=== PATIENT | female | born 1965 | race Hispanic/Latino ===

== ENCOUNTER 2017-08-22 00:17 | Emergency (ER) | payer SELFPAY ==
[2017-08-22 00:58] LABS: #Eosinphils 0.3 thou/uL (0.0-0.7); #Monocytes 0.7 thou/uL (0.11-0.59); #Neutrophils 9.8 thou/uL (1.40-6.50); %Basophils 0.4 % (0.0-1.0); %Eosinophils 2.3 % (0.0-10.0); %Lymphocytes 15.5 % (21.0-51.0); %Monocytes 5.2 % (0.0-10.0); Hematocrit 28.9 % (36.0-47.0); Mean Platelet Volume 9.7 fL (7.4-10.4); Red Blood Cell (RBC) Count 4.35 mill/uL (4.20-5.40); White Blood Cell (WBC) Count 12.8 thou/uL (4.8-10.8)
[2017-08-22 01:18] LABS: ALT (SGPT) 9 U/L (8-55); AST (SGOT) 10 U/L (5-34); Alkaline Phosphatase 61 U/L (40-150); Anion Gap 16 mmol/L (10-20); BUN (Urea Nitrogen) 17 mg/dL (7.0-18.7); Bilirubin, Total 0.3 mg/dL (0.2-1.2); Calc. Creatinine Clearance 0 mL/min (70-130); Calcium 9.2 mg/dL (7.8-10.44); Carbon Dioxide 22 mmol/L (22-29); Chloride 98 mmol/L (98-107); Estimated GFR-MDRD 71; Globulin 3.4 g/dL (2.4-3.5); Protein, Total 7.6 g/dL (6.0-8.3)
[2017-08-22 02:11] LABS: Troponin I Less than 0.010 ng/mL (< 0.028)
--- NOTE | 2017-08-22 10:34 | RAD ---
CHEST 2 VIEWS: HISTORY: Cough and fever. FINDINGS: Heart size and mediastinum are within normal limits. The lungs are clear of infiltrates. No signifi cant bony findings. IMPRESSION: No active intrathoracic disease. POS: [facility]
--- NOTE | 2017-08-28 15:36 | EKG ---
Test Reason : LIGHTHEADED Blood Pressure : / mmHG Vent. Rate : 092 BPM Atrial Rate : 092 BPM P-R Int : 144 ms QRS Dur : 086 ms QT Int : 374 ms P-R-T Axes : 027 -07 006 degrees QTc Int : 462 ms Normal sinus rhythm Inferior infarct , age undetermined Abnormal ECG Confirmed by ROMEO FIELDS D.O. ([id number]), newspaper editor DANILO STOREY ([id number]) on 08/28/2017 3:35:32 PM Referred By: Confirmed By:ROMEO FIELDS D.O.
== END 2017-08-22 03:05 | disposition home or self-care (01) ==
LOC: ERS 00:17
DX: R42 Dizziness and giddiness (principal); E11.9 Type 2 diabetes mellitus without complications; I10 Essential (primary) hypertension; Z86.73 Personal history of transient ischemic attack (TIA), and cerebral infarction without residual deficits
CPT/HCPCS: 36415; 36416; 71020; 80053; 82553; 84484; 85025; 93005; 96360

== ENCOUNTER 2017-08-22 21:14 | Emergency (ER) | payer SELFPAY ==
[2017-08-22 22:18] LABS: Bilirubin Negative (Negative); Blood, Urine Negative (Negative); Glucose, Urine (Dipstick) 250 mg/dL (Negative); Ketone, Urine Negative (Negative); Nitrite Negative (Negative); Protein, Urine (Dipstick) Negative (Neg-Trace); Urobilinogen 0.2 mg/dL (0.2-1.0)
[2017-08-22 22:28] LABS: #Basophils 0.1 thou/uL (0.0-0.2); #Eosinphils 0.2 thou/uL (0.0-0.7); #Monocytes 0.6 thou/uL (0.11-0.59); #Neutrophils 9.7 thou/uL (1.40-6.50); %Basophils 0.5 % (0.0-1.0); %Eosinophils 1.2 % (0.0-10.0); %Lymphocytes 15.6 % (21.0-51.0); %Monocytes 4.9 % (0.0-10.0); Hematocrit 28.6 % (36.0-47.0); Mean Platelet Volume 9.7 fL (7.4-10.4); Red Blood Cell (RBC) Count 4.34 mill/uL (4.20-5.40); White Blood Cell (WBC) Count 12.5 thou/uL (4.8-10.8)
[2017-08-22 22:45] LABS: ALT (SGPT) 11 U/L (8-55); AST (SGOT) 11 U/L (5-34); Alkaline Phosphatase 64 U/L (40-150); Anion Gap 17 mmol/L (10-20); BUN (Urea Nitrogen) 11 mg/dL (7.0-18.7); Bilirubin, Total 0.2 mg/dL (0.2-1.2); Calc. Creatinine Clearance 0 mL/min (70-130); Calcium 9.5 mg/dL (7.8-10.44); Carbon Dioxide 18 mmol/L (22-29); Chloride 98 mmol/L (98-107); Estimated GFR-MDRD 78; Globulin 3.6 g/dL (2.4-3.5); Protein, Total 8.1 g/dL (6.0-8.3)
[2017-08-22] MEDS ORDERED: Ketorolac Tromethamine 30 MG/ML VIAL ONE (22:50)
[2017-08-23] MEDS ORDERED: Ondansetron HCl/PF 4 MG/2 ML Vial ONE (00:15)
== END 2017-08-23 00:25 | disposition home or self-care (01) ==
LOC: ERS 21:14
DX: R30.0 Dysuria (principal); E11.9 Type 2 diabetes mellitus without complications; I10 Essential (primary) hypertension; Z86.73 Personal history of transient ischemic attack (TIA), and cerebral infarction without residual deficits; Z79.899 Other long term (current) drug therapy
CPT/HCPCS: 36415; 81003; 81025; 87086; 96374; 96375; J1885; J2405

== ENCOUNTER 2019-03-30 08:00 | Observation (INO) | payer SELFPAY ==
[2019-03-30] MEDS ORDERED: Ketorolac Tromethamine 30 MG/ML VIAL ONE (08:31)
[2019-03-30] MEDS ORDERED: Acetaminophen 500 MG TAB ONE (08:31)
[2019-03-30 09:14] LABS: #Basophils 0.1 thou/uL (0.0-0.2); #Eosinphils 0.2 thou/uL (0.0-0.7); #Lymphocytes 1.9 thou/uL (1.20-3.40); #Monocytes 0.6 thou/uL (0.11-0.59); #Neutrophils 4.3 thou/uL (1.40-6.50); %Basophils 1.6 % (0.0-1.0); %Eosinophils 3.2 % (0.0-10.0); %Lymphocytes 26.8 % (21.0-51.0); %Monocytes 8.1 % (0.0-10.0); %Neutrophils 60.5 % (42.0-75.0); Hemoglobin 7.6 g/dL (12.0-16.0); Mean Corpuscular HGB CONC 27.8 g/dL (32.0-36.0); Mean Corpuscular Hemoglobin 16.3 pg (27.0-31.0); Mean Corpuscular Volume 58.6 fL (78.0-98.0); Mean Platelet Volume 6.5 fL (7.4-10.4); Platelet Count 432 thou/uL (130-400); RBC Distribution Width 19.8 % (11.5-14.5); Red Blood Cell (RBC) Count 4.65 mill/uL (4.20-5.40)
[2019-03-30 09:19] LABS: ALT (SGPT) 14 U/L (8-55); AST (SGOT) 17 U/L (5-34); Albumin 4.8 g/dL (3.5-5.0); Alkaline Phosphatase 68 U/L (40-150); Anion Gap 12 mmol/L (10-20); BUN (Urea Nitrogen) 10 mg/dL (9.8-20.1); Bilirubin, Total 0.5 mg/dL (0.2-1.2); Calc. Creatinine Clearance 0 mL/min (70-130); Calcium 10.1 mg/dL (7.8-10.44); Carbon Dioxide 26 mmol/L (22-29); Chloride 99 mmol/L (98-107); Estimated GFR-MDRD 81; Globulin 3.5 g/dL (2.4-3.5); Glucose 171 mg/dL (70-105); Potassium 3.8 mmol/L (3.5-5.1); Protein, Total 8.3 g/dL (6.0-8.3); Sodium 133 mmol/L (136-145)
[2019-03-30 09:39] LABS: Bilirubin Negative (Negative); Blood, Urine Negative (Negative); Clarity Clear (Clear); Glucose, Urine (Dipstick) Normal (Negative); Leukocyte Negative Leu/uL (Negative); Nitrite Negative (Negative); Protein, Urine (Dipstick) Negative (Neg-Trace); Urobilinogen Normal mg/dL (Less than 2)
[2019-03-30 09:44] LABS: Reflex for Review?? YES
[2019-03-30] MEDS ORDERED: Pantoprazole 40 MG VIAL ONE (12:34)
[2019-03-30 17:54] VITALS: BMI 33.7
[2019-03-30] MEDS ORDERED: GoLYTELY 4,000 ml Bottle PO SCH (18:00)
[2019-03-30] MEDS ORDERED: Sodium Chloride 0.9% (PF) 10 ML VIAL FS PRN (18:42)
[2019-03-30] MEDS ORDERED: Insulin Regular 300 UNITS/3 ML VIAL SC PRN (18:43)
[2019-03-30] MEDS ORDERED: Dextrose 5% in Water 1,000 ML IV PRN (18:43)
[2019-03-30] MEDS ORDERED: Dextrose 50% Abboject 50 ML SYRINGE IVP PRN (18:43)
--- NOTE | 2019-03-30 23:09 | CON ---
DATE OF CONSULTATION: 03/30/2019 REQUESTING PHYSICIAN: Damián Munoz M.D. REASON FOR CONSULTATION: GI bleeding and anemia. HISTORY OF PRESENT ILLNESS: Bell Torres is a 53-year-old woman with a prior history of CVA back in 2015 with some residual left-sided weakness, also diabetes and recurrent urinary tract infections. She is being admitted to the hospital today with iron deficiency anemia and a recent episode of rectal bleeding, though she presented with symptoms of suprapubic pain and dysuria as well as fever at home. Back in 2015, she was placed on Plavix after her stroke. She was rehospitalized in November 2015 with urinary tract symptoms and was also found to have significant anemia. She was seen by my colleague, Dr. Mesa at that time. She had no overt bleeding. FOBT was repeatedly negative and in the context of heavy menses, this was not thought to represent any GI issue. She had celiac serologies checked which were negative at that time. She did not undergo any endoscopic investigation. Dr. Mesa had recommended iron supplementation, which it appears the patient has not been on. She has continued on Plavix. Over the past 3 years, the patient denies any chronic gastrointestinal symptoms. Last week, she had a day with multiple loose bowel movements, which represented a really acute diarrhea. This only lasted for a day, but near the end of the day, she was having some bright red blood in her stool, which is something she had never had before. Over the past week since then, she has not had any recurrence of blood in the stool or any melena. However, for the past couple of day, she has been having some suprapubic burning discomfort, which she relates more to urination than anything else. She started her menses a couple of days ago, and these are usually heavy. Then, she started having some subjective fevers and chills and states that her temperature was up to 102 at home, and this prompted her presentation. Here, she has been afebrile and hemodynamically stable. Labs are significant for microcytic anemia with hemoglobin 7.6, MCV down to 58.6. This appears to be chronic with previous hemoglobin checked here, in the 8 to 9 range. FOBT was performed, and this was positive. The patient is being admitted for observation and further workup. She has no other complaints. PAST MEDICAL HISTORY: CVA in 2016, diabetes, hyperlipidemia, recurrent urinary tract infections, and tubal ligation, ALLERGIES: SULFA. OUTPATIENT MEDICATIONS: 1. Zocor. 2. Gemfibrozil. 3. Januvia. 4. Metformin. 5. Lisinopril. 6. Plavix 75 mg daily. 7. Nexium 20 mg daily. SOCIAL HISTORY: Alcohol use is rare. No smoking or drug use. FAMILY HISTORY: Her father had surgery for a large colon polyp, but this was evidently nonmalignant. REVIEW OF SYSTEMS: Full review of systems including constitutional, head, eyes, ears, nose, throat, GI, , cardiovascular, respiratory, musculoskeletal, neurologic systems is negative except as noted in the HPI. PHYSICAL EXAMINATION: VITAL SIGNS: Temperature 98.2, pulse 88, blood pressure 123/67, 100% oxygen saturation on room air. GENERAL: A 53-year-old woman, lying in bed comfortably, in no distress. SKIN: She is pale. No jaundice. No rashes were palpable. EYES: No scleral icterus. Extraocular movements intact. ENT: Mucous membranes moist. No oral lesions. LYMPH: No submandibular or supraclavicular lymphadenopathy. THYROID: Nontender to palpation. HEART: Regular rate and rhythm. LUNGS: Clear to auscultation bilaterally. ABDOMEN: Bowel sounds are present. Soft, nontender to deep palpation in the upper abdomen. There is some mild tenderness to palpation of the lower abdomen in the midline, but no guarding or rebound tenderness. EXTREMITIES: No peripheral edema. VESSELS: Radial pulses 2+ bilaterally. NEURO: Cranial nerves 2-12 intact bilaterally. LABORATORY STUDIES: Hemoglobin 7.6, MCV 58.6, WBC 7, platelets 432. Sodium 133, potassium 3.8, BUN 10, creatinine 0.75. Troponin negative. Urinalysis negative. LFTs all normal with total bilirubin 0.5, alkaline phosphatase 68, AST 17, ALT 14, albumin 4.8. Reviewing prior labs from August 2017 had shown hemoglobin 9.0. From October 2015, ferritin was low at 7.3. ASSESSMENT/PLAN: 1. Rectal bleeding, single episode one week ago. 2. Iron deficiency anemia, chronic, in the context of ongoing Plavix use and no oral iron supplementation. 3. Positive fecal occult blood test. 4. Suprapubic pain. I had a long discussion with the patient. She did have a single episode of rectal bleeding last week, but this has not recurred, and there has been no further overt gastrointestinal bleeding. Her menses are quite heavy, and this was thought to probably represent the etiology of her iron deficiency anemia during evaluation three years ago. However, now with the recent episode of rectal bleeding, the positive FOBT, the ongoing suprapubic pain, I note normal urinalysis, further GI investigation is required. I recommend that we proceed with both EGD and colonoscopy to evaluate for occult GI bleeding lesion. She is agreeable to this. We will administer bowel preparation this evening and plan for EGD and colonoscopy tomorrow. If endoscopic investigation is unremarkable, then I would recommend gynecologic consultation. The patient will also need to be on iron supplementation on hospital discharge. Job ID: [id number]
--- NOTE | 2019-03-31 01:19 | HP ---
CHIEF COMPLAINT: Abdominal pain, fever, chills, and dysuria. HISTORY OF PRESENT ILLNESS: Ms. Bell Torres is a 53-year-old female with past medical history of diabetes, hypertension, status post CVA, started having some feeling of fever, dizziness, feeling weak since yesterday. She felt like she might have fever, some pain in the lower abdomen. She thought she may have UTI, so she came to the hospital. In the ER, the patient was evaluated and found to be severely anemic, but she did not have any UTI. She had heme-positive stool with history of some possible GI bleeding. The patient received Protonix and then admitted for further evaluation and management. A GI consult also requested. PAST MEDICAL HISTORY: 1. Hypertension. 2. Diabetes mellitus. 3. Hyperlipidemia. 4. 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 5. History of anemia. PAST SURGICAL HISTORY: Status post tubal ligation. CURRENT MEDICATIONS: The patient is on; 1. Plavix 75 mg daily. 2. Metformin 1000 mg; 750 in the morning, 250 in the evening. 3. Glipizide 10 mg b.i.d. 4. Simvastatin 20 mg daily. 5. Lisinopril and hydrochlorothiazide 1 tablet daily. 6. Lopid 600 daily. 7. Nexium 20 mg daily. 8. Januvia 50 mg daily. ALLERGIES: SULFA. FAMILY HISTORY: Nothing contributory. SOCIAL HISTORY: The patient lives with family. No history of smoking. No history of alcohol intake. REVIEW OF SYSTEMS: Unremarkable except for the weakness, dizziness, fevers, chills. PHYSICAL EXAMINATION: GENERAL: The patient is alert, awake, and oriented x3. VITAL SIGNS: Temperature 98, pulse 79, respirations 20, blood pressure 130/70. HEENT: Head is normocephalic and atraumatic. Pupils are equal and reactive. Nasopharynx is pale and dry. Hard and soft palate, no lesions seen. SKIN: Skin turgor decreased. NECK: Supple. No JVD. LUNGS: Bilateral air entry with no rales, no rhonchi. HEART: S1, S2 regular. ABDOMEN: Soft, mildly tender in the lower abdomen. No guarding. No rigidity. Bowel sounds present. RECTAL: Done in the ER revealed heme-positive stool. CENTRAL NERVOUS SYSTEM: No new deficits. LABORATORY DATA: CBC shows WBC 7, hemoglobin 7.6, hematocrit 27, platelets 432. Metabolic panel; sodium 133, potassium 3.8, chloride 99, CO2 of 26, blood urea nitrogen 10, creatinine 0.7, glucose 171. Urinalysis negative. ASSESSMENT: 1. Severe microcytic anemia, symptomatic. 2. Heme-positive stool, rule out gastrointestinal bleeding. 3. Hypertension. 4. Diabetes mellitus. 5. Status post CVA. PLAN: 1. Vital signs q.4 hours. 2. Activity, as tolerated. 3. Allergies, sulfa. 4. Hep-Lock. 5. Diet, n.p.o. 6. Accu-Cheks q.6 hours, sliding scale mild with regular insulin. 7. Protonix 40 daily. 8. GI consult. Job ID: [id number]
[2019-03-31 06:15] LABS: #Basophils 0.1 thou/uL (0.0-0.2); #Eosinphils 0.3 thou/uL (0.0-0.7); #Lymphocytes 1.5 thou/uL (1.20-3.40); #Monocytes 0.5 thou/uL (0.11-0.59); #Neutrophils 2.5 thou/uL (1.40-6.50); %Basophils 1.8 % (0.0-1.0); %Eosinophils 6.4 % (0.0-10.0); %Lymphocytes 30.7 % (21.0-51.0); %Monocytes 9.6 % (0.0-10.0); %Neutrophils 51.6 % (42.0-75.0); Hemoglobin 6.5 g/dL (12.0-16.0); Mean Corpuscular HGB CONC 28.8 g/dL (32.0-36.0); Mean Corpuscular Volume 59.2 fL (78.0-98.0); Mean Platelet Volume 5.7 fL (7.4-10.4); Platelet Count 273 thou/uL (130-400); RBC Distribution Width 19.7 % (11.5-14.5); Red Blood Cell (RBC) Count 3.83 mill/uL (4.20-5.40); White Blood Cell (WBC) Count 4.8 thou/uL (4.8-10.8)
[2019-03-31 06:33] LABS: Anion Gap 11 mmol/L (10-20); BUN (Urea Nitrogen) 7 mg/dL (9.8-20.1); Calc. Creatinine Clearance 151 mL/min (70-130); Calcium 9.1 mg/dL (7.8-10.44); Carbon Dioxide 27 mmol/L (22-29); Chloride 101 mmol/L (98-107); Estimated GFR-MDRD Greater than 90; Glucose 189 mg/dL (70-105); Potassium 3.8 mmol/L (3.5-5.1); Sodium 135 mmol/L (136-145)
[2019-03-31] MEDS: Pantoprazole 40 MG VIAL IVP SCH (08:13)
[2019-03-31] MEDS ORDERED: Midazolam HCl 2 mg/2 ml Vial ONE (12:06)
[2019-03-31] MEDS ORDERED: Fentanyl 100 MCG/2 ML VIAL ONE (12:06)
--- NOTE | 2019-03-31 13:46 | OP ---
DATE OF PROCEDURE: 03/31/2019 ASSISTANCE SURGEON: None. PROCEDURES PERFORMED: 1. Esophagogastroduodenoscopy, diagnostic. 2. Colonoscopy with snare polypectomy. INDICATIONS: 1. Rectal bleeding, recent single episode. 2. Chronic iron-deficiency anemia. 3. Heme-positive stool. 4. Lower abdominal pain. MEDICATIONS: See Anesthesia record. FINDINGS: After discussion of the risks, benefits, and alternatives of the procedure, informed consent was obtained and witnessed. Pre-endoscopic cardiopulmonary examination was satisfactory. Time-out was performed before sedation was achieved. Sedation was achieved with Anesthesia assistance in the endoscopy unit. A Pentax adult upper endoscope was placed into the oropharynx and passed through the cricopharyngeus under direct visualization. The esophageal mucosa appeared normal throughout with a normal-appearing Z-line at 37 cm from the incisors. The endoscope was advanced into the stomach. Forward and retroflexed views of the entire gastric mucosa were obtained. The gastric mucosa appeared normal throughout. The endoscope was advanced through the pylorus and into the first and second portions of the duodenum, which also appeared normal. The upper endoscope was completely withdrawn and the patient was repositioned. Digital rectal exam was performed. There was some blood at the perineal area, which is coming from the vaginal opening. The patient is on her menstrual period at this time. No bleeding from the rectum. There were a few small external hemorrhoidal skin tags. Digital rectal exam was performed, which was otherwise unremarkable. The Pentax adult colonoscope was inserted into the anus and passed forward to the cecum in the usual fashion. The cecal base was identified by the appendiceal orifice as well as the ileocecal valve. The terminal ileum was intubated and the ileal mucosa was normal. The colonoscope was slowly withdrawn in a gradual and circumferential manner with careful examination of the entire colonic mucosa. The quality of the prep was good. The colonic mucosa appeared completely normal throughout. There was no evidence of any old blood, active bleeding, or bleeding lesions throughout the entirety of the colon. There were a few scattered diverticula throughout the colon. In the sigmoid colon, there was a small polyp measuring 2 mm in diameter. This was completely removed with cold snare and retrieved for pathology. Retroflexion in the rectum demonstrated internal hemorrhoids, which were nonbleeding. The colonoscope was completely withdrawn and the patient allowed to recover. The patient tolerated the procedure well. There were no immediate postprocedure complications. IMPRESSION: 1. Normal EGD. 2. Scattered colonic diverticulosis. 3. A 2 mm sigmoid colon polyp, completely removed with cold snare and retrieved for pathology. 4. Internal hemorrhoids, nonbleeding. RECOMMENDATIONS: 1. Iron supplementation. 2. Regular diet. 3. I would recommend gynecologic consultation or referral be made for the patient's menorrhagia. The patient's chronic anemia is likely secondary to heavy menstrual losses in the context of Plavix use, and chronic iron deficiency resulting from this. 4. Follow up pathology on the colon polyp. If the polyp is hyperplastic, repeat colonoscopy in 10 years. If the polyp is an adenoma, repeat colonoscopy in 5 years. GI will sign off. Please call back anytime with questions or concerns. Job ID: [id number]
[2019-03-31] MEDS ORDERED: Lidocaine 1% PF 5 ML VIAL ONE (14:56)
[2019-03-31] MEDS ORDERED: PROPOFOL 200 MG/20 ML VIAL ONE (14:56)
[2019-03-31] MEDS: Gemfibrozil 600 MG TAB PO SCH (16:18)
--- NOTE | 2019-03-31 16:48 | ULT ---
US Pelvic Transvag W Doppler HISTORY: Pelvic pain COMPARISON: None. FINDINGS: Real-time imaging of the pelvis was obtained transabdominally as well as within the endovag inal probe. This shows a uterus measuring 5.1 x 6.1 x 9.4 cm. Uterus has a heterogeneous appearance, is difficult to define discrete fibroids. The endometrium is in the 1 cm range. The right ovary shows a 2.4 cm cyst, the left ovary has a cyst measuring approximately 2.3 cm. Doppler evaluation with spectral analysis normal flow shown to both adnexa. A nabothian cyst is incidentally noted. IMPRESSION: 1. Diffusely heterogeneous echotexture of the uterus, no focal fibroids are identified although small fibroids could be present the other possibility is this represents adenomyosis. 2. Bilateral ovarian cysts.
[2019-03-31] MEDS ORDERED: Atorvastatin Calcium 10 MG TAB PO SCH (21:00)
[2019-03-31] MEDS: metFORMIN 500 MG TAB PO SCH (21:55)
--- NOTE | 2019-04-01 02:17 | CON ---
DATE OF CONSULTATION: 03/31/2019 CHIEF COMPLAINT: Heavy periods. HISTORY OF PRESENT ILLNESS: The patient is a 53-year-old female with a past medical history of hypertension, diabetes, hyperlipidemia, status post CVA, presenting to the hospital with complaints of fever, dizziness, and feeling weak. She was admitted to the hospital for severe microcytic anemia, symptomatic, and heme-positive stools. The patient had a colonoscopy done earlier today that was essentially normal. An ELECTRICAL MAINTENANCE MAN was consulted for menorrhagia. The patient reports that for the last 6 months, she has been having heavier periods than normal, lasting sometimes 5 to 9 days. She also admits that she is not having in the same time of every month like she used to home and later reported that her periods at times are not heavy, but lasted for few days. Prior to 6 months ago, she does report that she is having regular monthly periods lasting 3 to 5 days and has been having that for years. The patient reports that she started having this a couple days ago and is now having light bleeding. The patient denies any family history of labor trainer pathology or cancers. She reports that she has had a Pap smear within the last year and is normal, and has always had normal Pap smears for the last 20+ years. PAST MEDICAL HISTORY: 1. Hypertension. 2. Diabetes. 3. Hyperlipidemia. 4. History of stroke. 5. Anemia. PAST SURGICAL HISTORY: She has had tubal ligation. CURRENT MEDICATIONS: 1. Plavix 75 mg. 2. Metformin 1000 mg. 3. Glipizide 10 mg b.i.d. 4. Simvastatin 20 mg daily. 5. Lisinopril hydrochlorothiazide daily. 6. Lopid 600 mg daily. 7. Nexium 20 mg daily. 8. Januvia 50 mg daily. ALLERGIES: SULFA DRUGS. SOCIAL HISTORY: Denies drug, alcohol, or tobacco use. REVIEW OF SYSTEMS: Reports abdominal cramping, hunger. Denies weakness or dizziness at the time of evaluation. The patient was counseled for an endometrial biopsy outside. Transvaginal ultrasound essentially showed a slightly enlarged uterus with mass consistent with a transmural fibroid. She has had endometrial thickness about 1.2 cm. The patient also had 2+ cm size cyst on either ovary. The patient was counseled to the benefits and risk of an endometrial biopsy given her age and overall irregular bleeding including the risk of bleeding, infection, perforation of the uterus, cramping with the benefit of evaluation for possible premalignancy. The patient expressed understanding and desires to proceed. The patient provided written informed consent. The patient was placed in dorsal lithotomy position. In the [facility] exam room, a speculum was then placed vaginally. Cervix was prepped with Betadine x2. A single-tooth tenaculum was applied to the anterior lip of the cervix as the cervix was somewhat posterior and pointing very inferiorly. An endometrial pipette was then gently passed through the cervix into the endometrial cavity with a sound of 9 cm. With about 10 seconds of passing the pipette through the contents of the cavity, the pipette was removed and the contents were put into formalin bottle with what appeared to be good return. At this point, the tenaculum was removed. The tenaculum sites appeared to be hemostatic and the procedure was completed. Speculum was removed and patient was taken back to her room. PHYSICAL EXAMINATION: VITAL SIGNS: Blood pressure 129/78, temperature 97.7, respiratory rate of 16, pulse of 93. GENERAL: She appears to be in no acute distress. She is alert and oriented, cooperative, and pleasant to interact with. HEAD: Normocephalic, atraumatic. ABDOMEN: Soft. Vulva is without masses, lesions, or erythema. Vagina is moist. Cervix is closed. EXTREMITIES: Nontender. LABORATORY DATA: Pre-transfusion 6.5 hemoglobin, hematocrit 22.6, platelet count of 273, MCV is 59.2. ASSESSMENT AND PLAN: The patient is a 53-year-old female with abnormal uterine bleeding. She may have perimenopausal bleeding given her age. An endometrial biopsy has been performed to evaluate for possible pathology. I would recommend outpatient followup with [facility] [place] for evaluation for possible endometrial ablation given the level of anemia patient has received. Looking at the entire picture and the length of time patient has demonstrated anemia in the system with anemia in the 7s and 6s as early as November of 2015. This anemia may be more associated with chronic disease or chronic long-term iron deficiency and less related to her menorrhagia. However, given her more recent what sounds like excessive bleeding, certainly this has been a contributing factor to her requirement for blood transfusion. The patient may be entering soon into menopause solving this problem herself. Over this conversation, she can have more [place] with an outpatient ELECTRICAL MAINTENANCE MAN evaluation. I guess the next question is, is there any kind of medical intervention necessary to help better manage her periods in the short term. The patient does have a history of stroke and so any estrogen containing products are not indicated at this time. However, the patient may benefit from medroxyprogesterone 5 mg daily to be given on a continuous basis. Also helpful if not contraindicated would be the use of NSAIDs during onset of her menses as this has been shown to reduce overall blood loss. We will be reviewing the pathology results with Melissa by phone when they become available. Job ID: [id number]
[2019-04-01 05:25] LABS: #Basophils 0.1 thou/uL (0.0-0.2); #Eosinphils 0.5 thou/uL (0.0-0.7); #Lymphocytes 2.7 thou/uL (1.20-3.40); #Monocytes 0.6 thou/uL (0.11-0.59); #Neutrophils 3.4 thou/uL (1.40-6.50); %Basophils 1.4 % (0.0-1.0); %Lymphocytes 36.8 % (21.0-51.0); %Neutrophils 46.8 % (42.0-75.0); Hemoglobin 8.5 g/dL (12.0-16.0); Mean Corpuscular HGB CONC 30.6 g/dL (32.0-36.0); Mean Corpuscular Hemoglobin 19.6 pg (27.0-31.0); Mean Platelet Volume 5.9 fL (7.4-10.4); Platelet Count 290 thou/uL (130-400); Red Blood Cell (RBC) Count 4.34 mill/uL (4.20-5.40); White Blood Cell (WBC) Count 7.3 thou/uL (4.8-10.8)
[2019-04-01 05:48] LABS: Anion Gap 12 mmol/L (10-20); BUN (Urea Nitrogen) 14 mg/dL (9.8-20.1); Calc. Creatinine Clearance 133 mL/min (70-130); Calcium 9.1 mg/dL (7.8-10.44); Carbon Dioxide 24 mmol/L (22-29); Chloride 103 mmol/L (98-107); Estimated GFR-MDRD 84; Glucose 179 mg/dL (70-105); Potassium 3.7 mmol/L (3.5-5.1); Sodium 135 mmol/L (136-145)
[2019-04-01] MEDS ORDERED: glipiZIDE 10 MG TAB PO SCH (07:30)
[2019-04-01] MEDS ORDERED: Lisinopril/Hydrochlorothiazide 10 mg/12.5 mg Tablet PO SCH (09:00)
[2019-04-01] MEDS ORDERED: Clopidogrel Bisulfate 75 MG TAB PO SCH (09:00)
[2019-04-01] MEDS ORDERED: Alogliptin 25 MG TAB PO SCH (09:00)
[2019-04-01] MEDS: Gemfibrozil 600 MG TAB PO SCH (09:09)
[2019-04-01] MEDS: metFORMIN 500 MG TAB PO SCH (09:09)
[2019-04-01] MEDS: Pantoprazole 40 MG VIAL IVP SCH (09:10)
[2019-04-01 12:00] VITALS: BP 158/78; TEMP 97.8
--- NOTE | 2019-04-05 03:50 | DIS ---
DATE OF ADMISSION: 03/30/2019 DATE OF DISCHARGE: 04/01/2019 ADMITTING DIAGNOSES: 1. Severe microcytic anemia, symptomatic. 2. Heme-positive stool, rule out GI bleeding. 3. Hypertension. 4. Diabetes mellitus. 5. Status post cerebrovascular accident. FINAL DIAGNOSES: 1. Severe microcytic anemia, symptomatic, status post transfusion. 2. Heme-positive stool, but no evidence of acute GI bleeding. 3. History of menorrhagia. 4. Hypertension. 5. Diabetes mellitus. 6. Status post cerebrovascular accident. BRIEF SUMMARY OF HOSPITAL COURSE: Ms. Torres is a 53-year-old female admitted because of weakness and dizziness. The patient is found to be severely anemic with hemoglobin of 7.6. The patient was transfused, started on Protonix and GI was consulted and patient was seen by Dr. Olson, who suggested EGD and colonoscopy, the patient underwent procedures. EGD was normal. Colonoscopy showed scattered colonic diverticulosis and sigmoid colon polyp which was removed. She also had internal hemorrhoid. The patient also had history of menorrhagia. In view of that, a DIGITAL SALES MANAGER consult was done. The patient was seen by Dr. Marroquin and he suggested biopsy of the endometrium which was done and the result is pending. The patient had a pelvic ultrasound done which did not reveal any uterine fibroids. Her hemoglobin improved after transfusion. Initial hemoglobin was 6.5, improved to 8.6 after transfusion. The patient has been feeling well, so she is being discharged. At the time of discharge, she was stable, her vital signs stable. Lungs clear to auscultation. Abdomen is soft, nontender, bowel sounds present. DISCHARGE MEDICATIONS: 1. Plavix 75 mg daily. 2. Januvia 100 mg daily. 3. Simvastatin 20 mg daily. 4. Lisinopril/hydrochlorothiazide 10/12.5 daily. 5. Nexium 20 mg daily. 6. Gemfibrozil 600 b.i.d. 7. Metformin 1000 mg b.i.d. 8. Glipizide 10 mg b.i.d. 9. Ferrous sulfate 325 mg daily. FOLLOWUP: The patient will come for followup in 2 weeks and also will follow up with DIGITAL SALES MANAGER regarding biopsy. Job ID: [id number] [facility]
--- NOTE | 2019-04-08 07:09 | PDOC.EVN ---
Event Note - Event Note Event Note: 04/08 EMB chart check (photonics engineering technician OBGYN): EMB benign.
== END 2019-04-01 12:49 | disposition home or self-care (01) ==
LOC: ERS 08:00 → ERHOLD 12:21 → T4-A 17:40
PROVIDERS: ADMIT Internal Medicine; ATTEND Internal Medicine
PROC: 0DJ08ZZ Inspection of Upper Intestinal Tract, Via Natural or Artificial Opening Endoscopic (ICD-10-PCS; principal; 2019-03-31)
PROC: 0DBN8ZX Excision of Sigmoid Colon, Via Natural or Artificial Opening Endoscopic, Diagnostic (ICD-10-PCS; 2019-03-31)
PROC: 0UDB7ZX Extraction of Endometrium, Via Natural or Artificial Opening, Diagnostic (ICD-10-PCS; 2019-03-31)
DX: D50.9 Iron deficiency anemia, unspecified (principal); K62.5 Hemorrhage of anus and rectum; D12.5 Benign neoplasm of sigmoid colon; K57.30 Diverticulosis of large intestine without perforation or abscess without bleeding; K64.4 Residual hemorrhoidal skin tags; K64.8 Other hemorrhoids; N92.0 Excessive and frequent menstruation with regular cycle; N83.202 Unspecified ovarian cyst, left side; N83.201 Unspecified ovarian cyst, right side; N88.8 Other specified noninflammatory disorders of cervix uteri; E11.9 Type 2 diabetes mellitus without complications; I10 Essential (primary) hypertension; E78.5 Hyperlipidemia, unspecified; I69.354 Hemiplegia and hemiparesis following cerebral infarction affecting left non-dominant side; Z79.02 Long term (current) use of antithrombotics/antiplatelets; Z79.84 Long term (current) use of oral hypoglycemic drugs; Z79.899 Other long term (current) drug therapy; Z88.2 Allergy status to sulfonamides; Z98.51 Tubal ligation status
CPT/HCPCS: 36415; 36416; 36430; 51701; 76856; 80048; 80053; 82274; 85025; 85060; 86850; 86900; 86901; 87086; 88305; 96361; 96372; 96374; 96375; A4353; C9113; G0378; J1885; J2001; J2250; J2704; J3010; P9016

== ENCOUNTER 2020-12-31 12:03 | Emergency (ER) | payer SELFPAY ==
[2020-12-31 14:54] LABS: #Basophils 0.1 thou/uL (0.0-0.2); #Eosinphils 0.3 thou/uL (0.0-0.7); #Lymphocytes 2.4 thou/uL (1.20-3.40); #Monocytes 0.5 thou/uL (0.11-0.59); #Neutrophils 5.9 thou/uL (1.40-6.50); %Basophils 1.2 % (0.0-1.0); %Eosinophils 2.9 % (0.0-10.0); %Lymphocytes 25.8 % (21.0-51.0); %Monocytes 5.6 % (0.0-10.0); %Neutrophils 64.5 % (42.0-75.0); Mean Corpuscular HGB CONC 31.2 g/dL (32.0-36.0); Mean Corpuscular Hemoglobin 18.8 pg (27.0-31.0); Mean Corpuscular Volume 60.3 fL (78.0-98.0); Mean Platelet Volume 5.9 fL (7.4-10.4); Platelet Count 361 thou/uL (130-400); RBC Distribution Width 18.3 % (11.5-14.5); Red Blood Cell (RBC) Count 4.77 mill/uL (4.20-5.40); White Blood Cell (WBC) Count 9.2 thou/uL (4.8-10.8)
[2020-12-31 15:20] LABS: ALT (SGPT) 10 U/L (8-55); AST (SGOT) 10 U/L (5-34); Albumin 4.9 g/dL (3.5-5.0); Alkaline Phosphatase 74 U/L (40-110); Anion Gap 18 mmol/L (10-20); BUN (Urea Nitrogen) 10 mg/dL (9.8-20.1); Bilirubin, Total 0.2 mg/dL (0.2-1.2); Calc. Creatinine Clearance 0 mL/min (70-130); Calcium 10.2 mg/dL (7.8-10.44); Carbon Dioxide 20 mmol/L (22-29); Chloride 100 mmol/L (98-107); Globulin 3.5 g/dL (2.4-3.5); Glucose 179 mg/dL (70-105); Protein, Total 8.4 g/dL (6.0-8.3); Sodium 134 mmol/L (136-145)
[2020-12-31 15:23] LABS: Anisocytosis SLIGHT = 6-15 cells (100X) (0-5/hpf); Hypochromia SLIGHT = 6-15 cells (100X) (0-5/hpf); MDiff Complete? YES; Microcytosis MODERATE=15-30 cells (100X) (0-5/hpf); Platelet Morphology Comment Appears Adequate; Polychromasia MODERATE = 3-4 cells (100X) (0-2/hpf); Reflex for Review?? NO; Stomatocytes SLIGHT = 2-5 cells (100X) (0-1/hpf); Target Cells SLIGHT = 2-5 cells (100X) (0-1/hpf); Tear Drops SLIGHT = 2-5 cells (100X) (0-1/hpf)
[2020-12-31 16:16] LABS: Bacteria/HPF None Seen HPF (None Seen); Bilirubin Negative (Negative); Blood, Urine 2+ (Negative); Clarity Clear (Clear); Glucose, Urine (Dipstick) 50 mg/dL (Negative); Ketone, Urine Negative (Negative); Leukocyte Negative Leu/uL (Negative); Nitrite Negative (Negative); Protein, Urine (Dipstick) Negative (Neg-Trace); RBC/HPF 0-3 HPF (0-3); Specific Gravity, Urine 1.008 (1.002-1.036); Squamous Epithelial 0-3 HPF (0-3); Urobilinogen Normal mg/dL (Less than 2); WBC/HPF 0-3 HPF (0-3)
[2020-12-31 16:17] LABS: Pregnancy Test - Urine (BHCG) Negative (Negative); Pregu Control Background? CLEAR/WHITE (CLR/WHITE); Pregu Control Bar Appear? YES (CONTROL BAR); Specific Gravity 1.008 (1.002-1.036)
== END 2020-12-31 16:42 | disposition home or self-care (01) ==
LOC: ERS 12:03
DX: D50.9 Iron deficiency anemia, unspecified (principal); E11.9 Type 2 diabetes mellitus without complications; I10 Essential (primary) hypertension; E78.00 Pure hypercholesterolemia, unspecified; Z86.73 Personal history of transient ischemic attack (TIA), and cerebral infarction without residual deficits
CPT/HCPCS: 36415; 71045; 80053; 81003; 81015; 81025; 84484; 85025; 86850; 86900; 86901; 93005

== ENCOUNTER 2022-02-02 15:06 | Emergency (ER) | payer SELFPAY ==
[2022-02-02 15:36] LABS: #Basophils 0.1 thou/uL (0.0-0.2); #Eosinphils 0.4 thou/uL (0.0-0.7); #Lymphocytes 2.3 thou/uL (1.20-3.40); #Monocytes 0.6 thou/uL (0.11-0.59); #Neutrophils 6.3 thou/uL (1.40-6.50); %Basophils 0.8 % (0.0-1.0); %Eosinophils 4.7 % (0.0-10.0); %Lymphocytes 23.6 % (21.0-51.0); %Monocytes 5.8 % (0.0-10.0); %Neutrophils 65.2 % (42.0-75.0); Hemoglobin 9.2 g/dL (12.0-16.0); Mean Corpuscular HGB CONC 30.9 g/dL (32.0-36.0); Mean Corpuscular Hemoglobin 19.4 pg (27.0-31.0); Mean Corpuscular Volume 62.6 fL (78.0-98.0); Mean Platelet Volume 5.5 fL (7.4-10.4); Platelet Count 299 thou/uL (130-400); RBC Distribution Width 18.1 % (11.5-14.5); Red Blood Cell (RBC) Count 4.73 mill/uL (4.20-5.40); White Blood Cell (WBC) Count 9.6 thou/uL (4.8-10.8)
[2022-02-02 15:50] LABS: BHCG - Serum Negative (NEGATIVE); Pregs Control Background? CLEAR/WHITE (CLR/WHITE); Pregs Control Bar Appear? YES (CONTROL BAR)
[2022-02-02 15:59] LABS: ALT (SGPT) 8 U/L (8-55); AST (SGOT) 8 U/L (5-34); Albumin 4.6 g/dL (3.5-5.0); Alkaline Phosphatase 63 U/L (40-110); Anion Gap 15 mmol/L (10-20); BUN (Urea Nitrogen) 11 mg/dL (9.8-20.1); Bilirubin, Total 0.3 mg/dL (0.2-1.2); Calc. Creatinine Clearance 0 mL/min (70-130); Calcium 10.3 mg/dL (7.8-10.44); Carbon Dioxide 23 mmol/L (22-29); Chloride 97 mmol/L (98-107); Globulin 3.3 g/dL (2.4-3.5); Glucose 110 mg/dL (70-105); Lipase 24 U/L (8-78); Potassium 3.3 mmol/L (3.5-5.1); Protein, Total 7.9 g/dL (6.0-8.3); Sodium 132 mmol/L (136-145)
[2022-02-02 16:00] LABS: Anisocytosis SLIGHT = 6-15 cells (100X) (0-5/hpf); Hypochromia MODERATE=16-30 cells (100X) (0-5/hpf); Large Platelets SLIGHT; MDiff Complete? YES; Microcytosis SLIGHT = 6-15 cells (100X) (0-5/hpf); Ovalocytes SLIGHT = 2-5 cells (100X) (0-1/hpf); Platelet Morphology Comment Appears Adequate; Polychromasia MODERATE = 3-4 cells (100X) (0-2/hpf); Reflex for Review?? NO; Tear Drops SLIGHT = 2-5 cells (100X) (0-1/hpf)
[2022-02-02] MEDS ORDERED: Ondansetron PF 4 MG/2 ML Vial ONE (18:33)
[2022-02-02 19:36] LABS: Bilirubin Negative (Negative); Blood, Urine Negative (Negative); Clarity Clear (Clear); Glucose, Urine (Dipstick) Normal (Negative); Ketone, Urine Negative (Negative); Leukocyte Negative Leu/uL (Negative); Nitrite Negative (Negative); Protein, Urine (Dipstick) Negative (Neg-Trace); Specific Gravity, Urine 1.012 (1.002-1.036); Urobilinogen Normal mg/dL (Less than 2); pH, Urine 5.5 (5.0-9.0)
== END 2022-02-02 20:02 | disposition home or self-care (01) ==
LOC: ERS 15:06
DX: R11.2 Nausea with vomiting, unspecified (principal); R19.7 Diarrhea, unspecified; E11.9 Type 2 diabetes mellitus without complications; I10 Essential (primary) hypertension; E78.00 Pure hypercholesterolemia, unspecified; D64.9 Anemia, unspecified; Z79.84 Long term (current) use of oral hypoglycemic drugs; Z79.899 Other long term (current) drug therapy; Z86.73 Personal history of transient ischemic attack (TIA), and cerebral infarction without residual deficits
CPT/HCPCS: 36415; 36416; 80053; 81003; 83690; 84703; 85025; 96361; 96374; J2405

== ENCOUNTER 2024-03-08 10:23 | Emergency (ER) | payer SELFPAY ==
[~2024-03-08 10:23] MED LIST: Iopamidol-370 76% 500 ML MDV (1 ML CHARGE) ONE
[2024-03-08] MEDS ORDERED: Ketorolac Tromethamine 30 MG (1 mL) VIAL ONE (10:55)
[2024-03-08] MEDS ORDERED: Ondansetron PF 4 MG/2 ML Vial ONE (10:55)
[2024-03-08 11:17] LABS: ALT (SGPT) 13 U/L (8-55); AST (SGOT) 14 U/L (5-34); Albumin 4.5 g/dL (3.5-5.0); Alkaline Phosphatase 58 U/L (40-110); Anion Gap 18 mmol/L (10-20); BUN (Urea Nitrogen) 11 mg/dL (9.8-20.1); Bilirubin, Total 0.3 mg/dL (0.2-1.2); Calc. Creatinine Clearance 0 mL/min (70-130); Calcium 9.8 mg/dL (7.8-10.44); Carbon Dioxide 21 mmol/L (22-29); Chloride 100 mmol/L (98-107); Estimated GFR 100; Globulin 3.7 g/dL (2.4-3.5); Glucose 175 mg/dL (70-105); Lipase 40 U/L (8-78); Potassium 3.6 mmol/L (3.5-5.1); Protein, Total 8.2 g/dL (6.0-8.3); Sodium 135 mmol/L (136-145)
[2024-03-08 11:59] LABS: Platelet Adequacy Comment Platelets Normal; RBC Morphology Within Normal Limits
[2024-03-08 12:00] LABS: #Basophils 0.07 10x3/uL (0.0-0.2); %Basophils 1.3 % (0.0-1.0); %Eosinophils 4.2 % (0.0-10.0); %Lymphocytes 28.3 % (21.0-51.0); %Monocytes 5.8 % (0.0-10.0); %Neutrophils 60.2 % (42.0-75.0); Hematocrit 30.7 % (36.0-47.0); Hemoglobin 9.3 g/dL (12.0-16.0); Mean Corpuscular HGB CONC 30.3 g/dL (32.0-36.0); Mean Corpuscular Hemoglobin 20.4 pg (27.0-31.0); Mean Corpuscular Volume 67.3 fL (78.0-98.0); Mean Platelet Volume 9.6 fL (7.4-10.4); Platelet Count 303 10x3/uL (130-400); RBC Distribution Width 17.1 % (11.5-14.5); Red Blood Cell (RBC) Count 4.56 mill/uL (4.20-5.40)
[2024-03-08 12:39] LABS: Bacteria/HPF None Seen HPF (None Seen); Bilirubin Negative (Negative); Blood, Urine Negative (Negative); CAUTI Indications for Culture Pelvic or flank pain; Clarity Clear (Clear); Glucose, Urine (Dipstick) Normal (Negative); Ketone, Urine Negative (Negative); Leukocyte Negative Leu/uL (Negative); Nitrite Negative (Negative); Protein, Urine (Dipstick) Negative (Neg-Trace); RBC/HPF 0-3 HPF (0-3); Specific Gravity, Urine 1.007 (1.002-1.036); Squamous Epithelial 0-3 HPF (0-3); Urobilinogen Normal mg/dL (Less than 2); WBC/HPF 0-3 HPF (0-3); pH, Urine 6.5 (5.0-9.0)
[2024-03-08 12:42] LABS: Urine Culture Reflex No No
[2024-03-08] MEDS ORDERED: Morphine 4 MG/ML VIAL ONE (14:09)
== END 2024-03-08 14:17 | disposition home or self-care (01) ==
LOC: ERS 10:23
DX: K57.32 Diverticulitis of large intestine without perforation or abscess without bleeding (principal); E11.9 Type 2 diabetes mellitus without complications; I10 Essential (primary) hypertension; Z79.899 Other long term (current) drug therapy; Z79.84 Long term (current) use of oral hypoglycemic drugs
CPT/HCPCS: 71045; 74177; 76705; 80053; 81001; 83690; 85025; 93005; 96374; 96375; J1885; J2270; J2405

== ENCOUNTER 2024-04-04 16:42 | Emergency (ER) | payer MEDICARE, SELFPAY ==
[2024-04-04 17:38] LABS: #Basophils 0.12 10x3/uL (0.0-0.2); %Basophils 1.5 % (0.0-1.0); %Eosinophils 6.3 % (0.0-10.0); %Lymphocytes 40.9 % (21.0-51.0); %Monocytes 4.9 % (0.0-10.0); %Neutrophils 46.3 % (42.0-75.0); Hematocrit 32.4 % (36.0-47.0); Hemoglobin 9.7 g/dL (12.0-16.0); Mean Corpuscular HGB CONC 29.9 g/dL (32.0-36.0); Mean Corpuscular Hemoglobin 20.9 pg (27.0-31.0); Mean Corpuscular Volume 69.7 fL (78.0-98.0); Mean Platelet Volume 10.3 fL (7.4-10.4); Platelet Count 648 10x3/uL (130-400); Red Blood Cell (RBC) Count 4.65 mill/uL (4.20-5.40)
[2024-04-04 17:52] LABS: ALT (SGPT) 19 U/L (8-55); AST (SGOT) 24 U/L (5-34); Albumin 4.3 g/dL (3.5-5.0); Alkaline Phosphatase 58 U/L (40-110); Anion Gap 20 mmol/L (10-20); BUN (Urea Nitrogen) 13 mg/dL (9.8-20.1); Bilirubin, Total 0.1 mg/dL (0.2-1.2); Calc. Creatinine Clearance 0 mL/min (70-130); Calcium 10.2 mg/dL (7.8-10.44); Carbon Dioxide 21 mmol/L (22-29); Chloride 96 mmol/L (98-107); Estimated GFR 92; Globulin 3.8 g/dL (2.4-3.5); Glucose 165 mg/dL (70-105); Lipase 28 U/L (8-78); Potassium 4.3 mmol/L (3.5-5.1); Protein, Total 8.1 g/dL (6.0-8.3); Sodium 133 mmol/L (136-145)
[2024-04-04 18:06] LABS: Burr Cells SLIGHT = 2-5 cells HPF (0-1); Microcytosis SLIGHT = 6-15 cells HPF (0-5); Platelet Adequacy Comment Platelets Increased
[2024-04-04] MEDS ORDERED: Morphine 4 MG/ML VIAL ONE ×2 (18:19→22:00)
[2024-04-04] MEDS ORDERED: Ondansetron PF 4 MG/2 ML Vial ONE (18:19)
[2024-04-04 18:57] LABS: Bacteria/HPF None Seen HPF (None Seen); Bilirubin Negative (Negative); Blood, Urine Trace (Negative); CAUTI Indications for Culture Dysuria,urgency,freq; Clarity Clear (Clear); Glucose, Urine (Dipstick) Normal (Negative); Ketone, Urine Negative (Negative); Leukocyte 75 Leu/uL (Negative); Nitrite Negative (Negative); Protein, Urine (Dipstick) Negative (Neg-Trace); RBC/HPF 0-3 HPF (0-3); Specific Gravity, Urine 1.008 (1.002-1.036); Urobilinogen Normal mg/dL (Less than 2)
[2024-04-04 18:58] LABS: Urine Culture Reflex No No
== END 2024-04-04 23:43 | disposition home or self-care (01) ==
LOC: ERS 16:42
DX: R10.11 Right upper quadrant pain (principal); R10.811 Right upper quadrant abdominal tenderness; E11.9 Type 2 diabetes mellitus without complications; I10 Essential (primary) hypertension
CPT/HCPCS: 74177; 76705; 80053; 81001; 83690; 85025; J2270; J2405; Q9967; 36415; 96374; 96375; 96376

== ENCOUNTER 2024-04-07 14:06 | Emergency (ER) | payer MEDICARE ==
[2024-04-07] MEDS ORDERED: Sucralfate 1 GM/10 ML UDCUP ONE (15:44)
[2024-04-07] MEDS ORDERED: HYDROcodone/Acetaminophen 5/325 mg Tablet ONE (15:44)
[2024-04-07] MEDS ORDERED: Famotidine 20 MG TAB ONE (15:45)
[2024-04-07 15:47] LABS: %Basophils 1.3 % (0.0-1.0); %Eosinophils 5.5 % (0.0-10.0); %Lymphocytes 37.3 % (21.0-51.0); %Monocytes 5.4 % (0.0-10.0); %Neutrophils 50.4 % (42.0-75.0); Hematocrit 33.4 % (36.0-47.0); Hemoglobin 10.1 g/dL (12.0-16.0); Mean Corpuscular HGB CONC 30.2 g/dL (32.0-36.0); Mean Corpuscular Hemoglobin 21.1 pg (27.0-31.0); Mean Corpuscular Volume 69.7 fL (78.0-98.0); Mean Platelet Volume 10.1 fL (7.4-10.4); Platelet Count 544 10x3/uL (130-400); RBC Distribution Width 18.3 % (11.5-14.5); Red Blood Cell (RBC) Count 4.79 mill/uL (4.20-5.40)
[2024-04-07 16:11] LABS: ALT (SGPT) 18 U/L (8-55); AST (SGOT) 17 U/L (5-34); Albumin 4.6 g/dL (3.5-5.0); Alkaline Phosphatase 57 U/L (40-110); Anion Gap 15 mmol/L (10-20); BUN (Urea Nitrogen) 10 mg/dL (9.8-20.1); Bilirubin, Total 0.2 mg/dL (0.2-1.2); Calc. Creatinine Clearance 0 mL/min (70-130); Calcium 10.4 mg/dL (7.8-10.44); Carbon Dioxide 23 mmol/L (22-29); Chloride 100 mmol/L (98-107); Estimated GFR 102; Globulin 3.7 g/dL (2.4-3.5); Glucose 124 mg/dL (70-105); Lipase 37 U/L (8-78); Potassium 3.8 mmol/L (3.5-5.1); Protein, Total 8.3 g/dL (6.0-8.3); Sodium 134 mmol/L (136-145)
[2024-04-07 16:18] LABS: Bacteria/HPF None Seen HPF (None Seen); Bilirubin Negative (Negative); Blood, Urine Negative (Negative); Clarity Clear (Clear); Glucose, Urine (Dipstick) Normal (Negative); Ketone, Urine Negative (Negative); Leukocyte 25 Leu/uL (Negative); Nitrite Negative (Negative); Protein, Urine (Dipstick) Negative (Neg-Trace); RBC/HPF 0-3 HPF (0-3); Squamous Epithelial 0-3 HPF (0-3); Urobilinogen Normal mg/dL (Less than 2); WBC/HPF 0-3 HPF (0-3); pH, Urine 6.5 (5.0-9.0)
== END 2024-04-07 18:04 | disposition home or self-care (01) ==
LOC: ERS 14:06
DX: K29.70 Gastritis, unspecified, without bleeding (principal); R19.7 Diarrhea, unspecified; E11.9 Type 2 diabetes mellitus without complications; I10 Essential (primary) hypertension
CPT/HCPCS: 36415; 80053; 81001; 83690; 85025; 99284

== ENCOUNTER 2025-08-19 04:06 | Inpatient (IN) | payer SELFPAY ==
[2025-08-19 04:46] LABS: #Basophils 0.07 10x3/uL (0.0-0.2); #Eosinophils 0.16 10x3/uL (0.0-0.7); #Monocytes 0.45 10x3/uL (0.11-0.59); #Neutrophils 7.47 10x3/uL (1.40-6.50); %Basophils 0.7 % (0.0-1.0); %Eosinophils 1.7 % (0.0-10.0); %Lymphocytes 13.0 % (21.0-51.0); %Monocytes 4.8 % (0.0-10.0); %Neutrophils 79.5 % (42.0-75.0); Hematocrit 29.0 % (36.0-47.0); Hemoglobin 9.1 g/dL (12.0-16.0); Mean Corpuscular Hemoglobin 24.6 pg (27.0-31.0); Mean Corpuscular Volume 78.4 fL (78.0-98.0); Platelet Count 315 10x3/uL (130-400); Red Blood Cell (RBC) Count 3.70 mill/uL (4.20-5.40); White Blood Cell (WBC) Count 9.40 10x3/uL (4.8-10.8)
[2025-08-19 05:08] LABS: ALT (SGPT) 7 U/L (Less than 34); AST (SGOT) 9 U/L (11-34); Albumin 3.7 g/dL (3.1-4.5); Alkaline Phosphatase 60 U/L (40-110); Anion Gap 18 mmol/L (10-20); BUN (Urea Nitrogen) 21 mg/dL (9.8-20.1); Bilirubin, Total 0.1 mg/dL (0.3-1.2); Calc. Creatinine Clearance 0 mL/min (70-130); Calcium 8.4 mg/dL (7.8-10.44); Carbon Dioxide 17 mmol/L (22-29); Chloride 100 mmol/L (98-107); Globulin 2.7 g/dL (2.4-3.5); Glucose 325 mg/dL (70-105); Lipase 287 U/L (8-78); Magnesium 1.2 mg/dL (1.6-2.6); Potassium 3.4 mmol/L (3.5-5.1); Sodium 132 mmol/L (136-145)
[2025-08-19] MEDS ORDERED: Magnesium 2 GM/50 ML BAG (IN WATER) ONE (05:49)
[2025-08-19] MEDS ORDERED: Ondansetron PF 4 MG/2 ML Vial ONE (05:49)
[2025-08-19 06:13] LABS: Actual Bicarbonate (HCO3v) 20.3 mEq/L (22-28); Analyzer IN Cardio ER; Base Excess -5.1 mEq/L (-2.0 to +3.0); Calcium, Ionized (venous) 1.15 mmol/L (1.16-1.32); Chloride (VBG) 99 mmol/L (98-106); Hematocrit-VBG 31 % (36.0-47.0); Hemoglobin (Hb) 10.6 g/dL (11.7-16.0); Potassium (VBG) 3.74 mmol/L (3.70-5.30); Sodium 133 mmol/L (133-146)
[2025-08-19 06:28] LABS: Cardiac Risk 4.1 (Less than 4.5); Cholesterol 143.0 mg/dl (< 200 Desired); HDL Cholesterol 35.0 mg/dL (>60 Neg Risk); LDL Cholesterol, Calculated 32.0 mg/dL; Triglycerides 381.0 mg/dL (Less than 150)
[2025-08-19 06:32] LABS: CAUTI Indications for Culture Dysuria,urgency,freq; Glucose, Urine (Dipstick) Greater than 1000 mg/dL (Negative); Leukocyte Negative Leu/uL (Negative); Protein, Urine (Dipstick) Negative (Neg-Trace); RBC/HPF 0-3 HPF (0-3); Specific Gravity, Urine 1.007 (1.002-1.036); WBC/HPF 0-3 HPF (0-3)
[2025-08-19 06:39] LABS: Bacteria/HPF Rare-Few HPF (None Seen); Urine Culture Reflex No No
[2025-08-19] MEDS ORDERED: Acetaminophen 325 MG TAB PO PRN (07:30)
[2025-08-19] MEDS ORDERED: Dextrose 50% Abboject 50 ML SYRINGE SLOW IVP PRN (07:30)
[2025-08-19] MEDS ORDERED: Glucagon 1 MG/ML KIT IM PRN (07:30)
[2025-08-19] MEDS ORDERED: Ketorolac Tromethamine 30 MG (1 mL) VIAL IVP PRN (07:30)
[2025-08-19] MEDS ORDERED: PHOS-NAK 1 PKT PACK PO PRN (07:45)
[2025-08-19] MEDS ORDERED: Potassium Chloride 20 MEQ in Premix 1 BAG IVPB PRN (07:45)
[2025-08-19] MEDS ORDERED: Electrolyte Replacement Protocol 1 EACH FS SCH (07:45)
[2025-08-19] MEDS ORDERED: Insulin Glargine 30 UNITS/0.3 ML VIAL ONE (08:12)
[2025-08-19 10:09] VITALS: BMI 35.6
[2025-08-19] MEDS: Magnesium 2 GM/50 ML(in water) 2 GM in Premix 1 BAG IVPB PRN (10:09)
[2025-08-19] MEDS ORDERED: Acetaminophen/Codeine 30-300mg Tablet PO PRN (10:10)
[2025-08-19] MEDS ORDERED: Iopamidol 370 76% 100 ML VIAL ONE (11:40)
[2025-08-19 12:37] LABS: Anion Gap 15 mmol/L (10-20); BUN (Urea Nitrogen) 14 mg/dL (9.8-20.1); Calc. Creatinine Clearance 175 mL/min (70-130); Calcium 8.4 mg/dL (7.8-10.44); Carbon Dioxide 19 mmol/L (22-29); Chloride 106 mmol/L (98-107); Glucose 114 mg/dL (70-105); Potassium 4.2 mmol/L (3.5-5.1); Sodium 136 mmol/L (136-145)
[2025-08-19 12:44] LABS: Osmolality, Serum 284 mOsm/kg (275-295)
[2025-08-19 12:45] LABS: Actual Bicarbonate (HCO3v) 17.4 mEq/L (22-28); Base Excess -3.6 mEq/L (-2.0 to +3.0); Calcium, Ionized (venous) 1.04 mmol/L (1.16-1.32); Chloride (VBG) 103 mmol/L (98-106); Hematocrit-VBG 31 % (36.0-47.0); Hemoglobin (Hb) 10.6 g/dL (11.7-16.0); Potassium (VBG) 4.09 mmol/L (3.70-5.30); Sodium 135 mmol/L (133-146)
[2025-08-19] MEDS: Lisinopril 5 MG TAB PO SCH (13:12)
[2025-08-19 15:11] LABS: Potassium 4.1 mmol/L (3.5-5.1)
[2025-08-19] MEDS: Acetaminophen 325 MG TAB PO PRN (22:42)
[2025-08-20 07:44] LABS: #Basophils 0.06 10x3/uL (0.0-0.2); #Eosinophils 0.21 10x3/uL (0.0-0.7); #Monocytes 0.30 10x3/uL (0.11-0.59); #Neutrophils 2.89 10x3/uL (1.40-6.50); %Basophils 1.2 % (0.0-1.0); %Eosinophils 4.1 % (0.0-10.0); %Lymphocytes 31.8 % (21.0-51.0); %Monocytes 5.9 % (0.0-10.0); %Neutrophils 56.6 % (42.0-75.0); Hematocrit 32.9 % (36.0-47.0); Hemoglobin 10.0 g/dL (12.0-16.0); Mean Corpuscular Hemoglobin 24.0 pg (27.0-31.0); Mean Corpuscular Volume 79.1 fL (78.0-98.0); Platelet Count 361 10x3/uL (130-400); Red Blood Cell (RBC) Count 4.16 mill/uL (4.20-5.40); White Blood Cell (WBC) Count 5.10 10x3/uL (4.8-10.8)
[2025-08-20] MEDS: Lisinopril 10 MG TAB PO SCH ×2 (08:00→13:45)
[2025-08-20] MEDS: Sertraline 25 MG TAB PO SCH (08:00)
[2025-08-20] MEDS: Pantoprazole 40 MG DR.TAB PO SCH (08:01)
[2025-08-20] MEDS: Ferrous Sulfate 325 MG TAB PO SCH (08:01)
[2025-08-20 08:06] LABS: ALT (SGPT) 14 U/L (Less than 34); AST (SGOT) 19 U/L (11-34); Albumin 3.8 g/dL (3.1-4.5); Alkaline Phosphatase 45 U/L (40-110); Anion Gap 12 mmol/L (10-20); BUN (Urea Nitrogen) 6 mg/dL (9.8-20.1); Bilirubin, Total 0.2 mg/dL (0.3-1.2); Calc. Creatinine Clearance 182 mL/min (70-130); Calcium 8.9 mg/dL (7.8-10.44); Carbon Dioxide 25 mmol/L (22-29); Chloride 102 mmol/L (98-107); Globulin 2.7 g/dL (2.4-3.5); Glucose 188 mg/dL (70-105); Lipase 29 U/L (8-78); Magnesium 1.7 mg/dL (1.6-2.6); Potassium 4.1 mmol/L (3.5-5.1); Sodium 135 mmol/L (136-145)
[2025-08-20 08:21] LABS: Hep A IgM AB NONREACTIVE (NonReactive); Hep A IgM S/CO 0.47 S/CO (0-0.79); Hep B Core IgM Index 0.11 S/CO (0-0.79); Hep B Surf Ag NONREACTIVE S/CO (NonReactive); Hep C IgG Ab NONREACTIVE S/CO (NonReactive); Hep C Index 0.08 S/CO (0-0.79)
[2025-08-20] MEDS ORDERED: Insulin Glargine 30 UNITS/0.3 ML VIAL SC SCH (09:00)
[2025-08-20] MEDS: Ondansetron PF 4 MG/2 ML Vial IVP PRN (18:27)
[2025-08-20] MEDS: Ibuprofen 200 MG TAB PO SCH (22:04)
[2025-08-21 05:47] LABS: #Basophils 0.05 10x3/uL (0.0-0.2); #Eosinophils 0.29 10x3/uL (0.0-0.7); #Monocytes 0.35 10x3/uL (0.11-0.59); #Neutrophils 2.74 10x3/uL (1.40-6.50); %Basophils 0.9 % (0.0-1.0); %Eosinophils 5.5 % (0.0-10.0); %Lymphocytes 34.9 % (21.0-51.0); %Monocytes 6.6 % (0.0-10.0); %Neutrophils 51.7 % (42.0-75.0); Hematocrit 31.1 % (36.0-47.0); Hemoglobin 9.9 g/dL (12.0-16.0); Mean Corpuscular Hemoglobin 24.6 pg (27.0-31.0); Mean Corpuscular Volume 77.4 fL (78.0-98.0); Platelet Count 348 10x3/uL (130-400); Red Blood Cell (RBC) Count 4.02 mill/uL (4.20-5.40); White Blood Cell (WBC) Count 5.30 10x3/uL (4.8-10.8)
[2025-08-21 06:20] LABS: ALT (SGPT) 15 U/L (Less than 34); AST (SGOT) 18 U/L (11-34); Albumin 3.8 g/dL (3.1-4.5); Alkaline Phosphatase 42 U/L (40-110); Anion Gap 13 mmol/L (10-20); BUN (Urea Nitrogen) 9 mg/dL (9.8-20.1); Bilirubin, Total 0.2 mg/dL (0.3-1.2); Calc. Creatinine Clearance 150 mL/min (70-130); Calcium 9.1 mg/dL (7.8-10.44); Carbon Dioxide 26 mmol/L (22-29); Cardiac Risk 4.8 (Less than 4.5); Chloride 100 mmol/L (98-107); Cholesterol 167 mg/dl (< 200 Desired); Globulin 2.8 g/dL (2.4-3.5); Glucose 192 mg/dL (70-105); HDL Cholesterol 35 mg/dL (>60 Neg Risk); LDL Cholesterol, Calculated 86 mg/dL; Potassium 4.4 mmol/L (3.5-5.1); Sodium 135 mmol/L (136-145); Triglycerides 230 mg/dL (Less than 150)
[2025-08-21] MEDS: Lisinopril 20 MG TAB PO SCH (07:50)
[2025-08-21 12:36] VITALS: BP 167/98; TEMP 98.2
== END 2025-08-21 13:38 | disposition home or self-care (01) | DRG 438 ==
LOC: SUATTDRO 04:06 → ERS 04:06 → T4-A 07:30 → OBSVTOIN 08-20 16:20
PROVIDERS: ADMIT Family Medicine; ATTEND Internal Medicine
DX: K85.90 Acute pancreatitis without necrosis or infection, unspecified (principal); E11.00 Type 2 diabetes mellitus with hyperosmolarity without nonketotic hyperglycemic-hyperosmolar coma (NKHHC); I69.952 Hemiplegia and hemiparesis following unspecified cerebrovascular disease affecting left dominant side; I10 Essential (primary) hypertension; F10.90 Alcohol use, unspecified, uncomplicated; F32.A Depression, unspecified; R19.7 Diarrhea, unspecified; E78.1 Pure hyperglyceridemia; I95.1 Orthostatic hypotension; E83.42 Hypomagnesemia; E87.6 Hypokalemia; D50.9 Iron deficiency anemia, unspecified; K21.9 Gastro-esophageal reflux disease without esophagitis; K76.0 Fatty (change of) liver, not elsewhere classified; I69.912 Visuospatial deficit and spatial neglect following unspecified cerebrovascular disease; Z98.51 Tubal ligation status; Z98.890 Other specified postprocedural states; Z88.2 Allergy status to sulfonamides; Z79.84 Long term (current) use of oral hypoglycemic drugs
CPT/HCPCS: 36415; 36416; 74177; 76705; 80053; 80061; 80074; 81001; 82010; 82805; 82977; 83036; 83690; 83735; 83930; 84484; 85025; 93005; 93010; 96374; 96375; 96376; G0378; J1815; J2270; J2405; J3475; J7120; Q9967